=== PATIENT | female | born 1965 | race Caucasian/White ===

== ENCOUNTER → 2018-12-03 | Outpatient (CLI) | payer OTHER | LOC: MRI 09:34 | DX: M50.11 Cervical disc disorder with radiculopathy, high cervical region (principal); M51.34 Other intervertebral disc degeneration, thoracic region; M47.816 Spondylosis without myelopathy or radiculopathy, lumbar region; M51.26 Other intervertebral disc displacement, lumbar region; M51.24 Other intervertebral disc displacement, thoracic region; M48.061 Spinal stenosis, lumbar region without neurogenic claudication; M48.02 Spinal stenosis, cervical region ==

== ENCOUNTER 2019-02-25 21:35 | Emergency (ER) | payer OTHER ==
[~2019-02-25] VITALS: Ht 177.8 cm; Wt 99.8 kg
[2019-02-26 01:06] VITALS: BP 178/93
== END 2019-02-26 01:07 | disposition home or self-care (01) ==
LOC: ER 21:35
DX: M54.5 Low back pain (principal); M25.562 Pain in left knee; M25.561 Pain in right knee; M54.2 Cervicalgia; W10.9XXA Fall (on) (from) unspecified stairs and steps, initial encounter; Y93.89 Activity, other specified; Y92.89 Other specified places as the place of occurrence of the external cause; Y99.8 Other external cause status; Z88.2 Allergy status to sulfonamides; Z88.5 Allergy status to narcotic agent; Z88.8 Allergy status to other drugs, medicaments and biological substances

== ENCOUNTER 2019-06-13 19:44 | Emergency (ER) | payer OTHER ==
[~2019-06-13] VITALS: Ht 180.3 cm; Wt 121.6 kg
[2019-06-13 22:15] LABS: HEMATOCRIT 38.8 % (37.0-47.0)
[2019-06-13 22:17] LABS: ABSOLUTE NEUTROPHILS 10.7 thou/uL (1.4-8.2); BASOPHILS 0.7 % (0.0-2.0); EOSINOPHILS 0.4 % (0.0-3.0); HEMOGLOBIN 12.4 gm/dL (12.0-15.0); LYMPHOCYTES 17.4 % (24.0-44.0); MCH 29.5 pg (26.0-34.0); MCHC 32.1 g/dL (28.0-37.0); MCV 91.8 fL (80.0-100.0); MONOCYTES 6.1 % (1.0-8.0); PLATELET COUNT 358 thou/uL (150-400); POLYS 75.4 % (36.0-66.0); RBC 4.22 mil/uL (4.20-5.00); WBC 14.1 thou/uL (4.0-11.0)
[2019-06-13 22:19] LABS: ANION GAP 9 mmol/L (7-16); BUN 17 mg/dL (7-18); CALCIUM 8.6 mg/dL (8.5-10.1); CHLORIDE 101 mmol/L (98-107); CO2 28 mmol/L (21-32); CREATININE 1.1 mg/dL (0.6-1.0); GLUCOSE 95 mg/dL (74-106); POTASSIUM 3.8 mmol/L (3.5-5.1); SODIUM 138 mmol/L (136-145)
[2019-06-13 22:30] LABS: MAGNESIUM 1.7 mg/dL (1.8-2.4); SGOT 23 U/L (15-37); SGPT 30 U/L (30-65); TOTAL BILIRUBIN 0.2 mg/dL (<0.1-1.0); TOTAL PROTEIN 6.8 g/dL (6.4-8.2); TROPONIN-I <0.06 ng/mL (<0.06)
[2019-06-13 22:33] LABS: APTT 26.4 Seconds (24.5-32.8); D-DIMER 1.21 ug/mLFEU (0.19-0.50); PROTIME 9.4 Seconds (9.3-11.4)
[2019-06-13 23:55] LABS: AMP/METHAMP Negative (Negative); BARBITURATES Negative (Negative); BENZODIAZEPINES Negative (Negative); COCAINE Negative (Negative); METHADONE Negative (Negative); OPIATES Negative (Negative); PCP Negative (Negative)
[2019-06-14 00:12] VITALS: BP 162/73
[2019-06-14] MEDS ORDERED: NORFLEX100 MG PO (01:11)
[2019-06-14] MEDS ORDERED: PERCOCET PO (01:11)
--- NOTE | 2019-06-14 08:05 | EKG ---
[address] [place] [address] ELECTROCARDIOGRAM REPORT Name: JARVIS SENA Room [facility] [id number] ������������������ Admission: 06/13/19 ������������������ Attend Phys: Discharge: 06/14/19 ������������������ Date of : 61 Report #: [id number] ����������������������������������������������������������������� [id number] THIS REPORT FOR: //name// [facility] ED Test Date: 2019-06-13 Test Time: 19:51:26 Pat Name: JARVIS SENA Department: Room: Gender: F Repairer Handtools: NEVA : 1965 Requested By: Rony Vargas Order Number: [id number] MD: Driss Cochran Measurements Intervals [place] Rate: 107 P: 39 AR: 170 QRS: 20 QRSD: 83 T: 44 QT: 326 QTc: 435 Interpretive Statements Sinus tachycardia Abnormal R-wave progression, early transition No previous ECG available for comparison Electronically Signed On 06-14-2019 8:05:15 CDT by Driss Cochran [email or web address] ��������������������������������������������� <ELECTRONICALLY SIGNED> ���������������������������������������� By: Driss Cochran MD, [facility] ��������������������������������������������� 06/14/19804 50 50 Driss Cochran MD, FACC /EPI
== END 2019-06-14 01:30 | disposition home or self-care (01) ==
LOC: ER 19:44
PROVIDERS: Emergency Medicine
DX: S20.212A Contusion of left front wall of thorax, initial encounter (principal); S50.12XA Contusion of left forearm, initial encounter; S60.211A Contusion of right wrist, initial encounter; S90.112A Contusion of left great toe without damage to nail, initial encounter; R60.0 Localized edema; M10.9 Gout, unspecified; R79.1 Abnormal coagulation profile; I10 Essential (primary) hypertension; M81.0 Age-related osteoporosis without current pathological fracture; F17.210 Nicotine dependence, cigarettes, uncomplicated; Z88.2 Allergy status to sulfonamides; Z88.5 Allergy status to narcotic agent; Z88.8 Allergy status to other drugs, medicaments and biological substances; W01.0XXA Fall on same level from slipping, tripping and stumbling without subsequent striking against object, initial encounter; Y92.89 Other specified places as the place of occurrence of the external cause; Y93.89 Activity, other specified; Y99.8 Other external cause status

== ENCOUNTER → 2020-07-13 | Outpatient (CLI) | payer OTHER ==
[~2020-07-13] MED LIST: NORFLEX100 MG PO; PERCOCET PO
== END ==
LOC: LAB 11:03
PROVIDERS: ATTEND Anesthesiology
DX: Z20.828 Contact with and (suspected) exposure to other viral communicable diseases (principal)